=== PATIENT | female | born 1945 | race Hispanic/Latino ===

== ENCOUNTER 2021-08-29 12:54 | Inpatient (IN) | payer MEDICARE ==
--- NOTE | 2021-08-29 13:05 | Emergency Department Report ---
ED Lower Extremity HPI - General Stated Complaint: WEAKNESS/LEG DRAINAGE Time Seen by Provider: 08/29/21 13:00 - History of Present Illness Initial Comments: Patient presents by EMS secondary to leg infections. She states that she is at home. Her alcoholic daughter is living with her. Her autistic grandson is living with her. She states that she had become sick and was unable to care for herself. She has sat on the couch in her cot with dressings around her legs. They had wounds and sores on them. Now they have "worms in them." Patient believes it has been 3 weeks at least since the dressings have been changed. She states that she just does not have any help at home because she is the adult of the house. She states that her legs are hurting. It is a constant and aching pain. It is bilateral. There is no recent history of trauma. She has no fevers or chills. She has no chest pain or shortness of breath. - Related Data Previous Rx's Medication Instructions Recorded Last Taken Type Clindamycin [Clindamycin CAP] 600 mg PO TID 5 Days capsule 07/12/16 Unknown Rx Clindamycin [Clindamycin CAP] 450 mg PO Q8HR #21 capsule 12/11/19 Unknown Rx Allergies Allergy/AdvReac Type Severity Reaction Status Date / Time amoxicillin trihydrate Allergy Unknown Verified 01/30/16 16:44 [From Amoxil] codeine Allergy Unknown Verified 01/30/16 16:44 Sulfa (Sulfonamide Allergy Unknown Verified 01/30/16 16:44 Antibiotics) tetracycline Allergy Unknown Verified 01/30/16 16:44 ED Review of Systems ROS: Stated complaint: WEAKNESS/LEG DRAINAGE Other details as noted in HPI Comment: All other systems reviewed and negative Constitutional: denies: fever Eyes: denies: eye pain ENT: denies: throat pain Respiratory: denies: cough Cardiovascular: denies: chest pain Endocrine: denies: unexplained weight loss Gastrointestinal: denies: abdominal pain Genitourinary: dysuria (Patient admits this later in the ED course) Musculoskeletal: denies: back pain Skin: rash (Legs) Neurological: denies: headache Hematological/Lymphatic: denies: easy bruising ED Past Medical Hx - Past Medical History Hx Hypertension: No Hx Heart Attack/AMI: No Hx Congestive Heart Failure: No Hx Diabetes: No Hx Deep Vein Thrombosis: No Hx Pulmonary Embolism: No Hx GERD: Yes Hx Renal Disease: No Hx Arthritis: No Hx Kidney Stones: No Hx Asthma: No Hx COPD: No Hx Tuberculosis: No Hx HIV: No Additional medical history: prolapse bladder. poor circulation - Surgical History Hx Coronary Stent: No Hx Open Heart Surgery: No Hx Pacemaker: No Hx Internal Defibrillator: No Hx Cholecystectomy: No Hx Appendectomy: No Hx Breast Surgery: No Additional Surgical History: hysterectomy - Family History Family history: hypertension - Social History Smoking Status: Former Smoker Substance Use Type: None - Medications Home Medications: Home Medications Medication Instructions Recorded Confirmed Last Taken Type Clindamycin [Clindamycin CAP] 600 mg PO TID 5 Days capsule 07/12/16 Unknown Rx Clindamycin [Clindamycin CAP] 450 mg PO Q8HR #21 capsule 12/11/19 Unknown Rx ED Physical Exam - General Limitations: No Limitations, Other (Unkempt and disheveled. Pulse ox was noted) General appearance: alert, in no apparent distress - Head Head exam: Present: atraumatic, normocephalic, normal inspection - Eye Eye exam: Present: normal appearance, EOMI. Absent: scleral icterus - ENT ENT exam: Present: mucous membranes dry, normal external ear exam - Neck Neck exam: Present: normal inspection. Absent: meningismus - Respiratory Respiratory exam: Present: normal lung sounds bilaterally. Absent: respiratory distress - Cardiovascular Cardiovascular Exam: Present: regular rate, normal rhythm - GI/Abdominal GI/Abdominal exam: Present: soft. Absent: tenderness - Extremities Exam Extremities exam: Present: other (Significant wounds are noted to both legs with necrosis, maggots, and purulent drainage. This includes the feet.) - Back Exam Back exam: Absent: CVA tenderness (R), CVA tenderness (L) - Neurological Exam Neurological exam: Present: alert, oriented X3, CN II-XII intact, other (Numbness to both legs subjectively) - Psychiatric Psychiatric exam: Present: normal affect, normal mood - Skin Skin exam: Present: warm, dry ED Course - Reevaluation(s) Reevaluation #1: 08/29/21 13:03 EMS was met. Patient will be placed in a room. Legs will be examined. Case management will be ordered. Reevaluation #2: 08/29/21 14:49 Legs have been noted. Case was discussed with Dr. Blancas who will admit. Wound care is at the bedside. ED Lower Extremity MDM - Lab Data Result diagrams: 08/29/21 13:25 08/29/21 13:25 - Medical Decision Making Patient is here for leg wound evaluation. She has significant necrosis of both legs with significant wounds and infections with maggot infestation. She later reports a urinary tract infection and a UA will be ordered. Patient can be treated symptomatically. Case management and wound care have been involved. She will likely need placement. Adult Protective Services will need to be notified. Critical Care Time: No Critical care attestation.: If time is entered above; I have spent that time in minutes in the direct care of this critically ill patient, excluding procedure time. ED Disposition Clinical Impression: Cellulitis of right leg, Left leg cellulitis Disposition: ADMITTED INPATIENT Is pt being admited?: Yes Condition: Stable
[2021-08-29 13:40] LABS: Hematocrit 39.2 % (30.3-42.9); Hemoglobin 12.9 gm/dl (10.1-14.3); Mean Corpuscular HGB Conc 33 % (30-34); Mean Corpuscular Volume 86 fl (79-97); Platelet Count 271 K/mm3 (140-440); Red Blood Count 4.56 M/mm3 (3.65-5.03); Red Cell Distribution Width 15.3 % (13.2-15.2)
[2021-08-29 13:54] LABS: Blood Urea Nitrogen 9 mg/dL (7-17); Calcium 8.2 mg/dL (8.4-10.2); Hemolysis Index 7
[2021-08-29 14:06] LABS: BUN/Creatinine Ratio 13
[2021-08-29] MEDS ORDERED: SODIUM CHLORIDE 0.9% 500 ML 500 ML ONE (14:45)
[2021-08-29] MEDS ORDERED: ALBUTEROL 2.5 MG/3 ML NEBU IH PRN (14:56)
[2021-08-29] MEDS ORDERED: oxyCODONE /ACETAMINOPHEN 5-325MG TAB PO PRN (14:56)
[2021-08-29] MEDS ORDERED: HYDROmorphone 1 MG/1 ML INJ IV PRN (14:56)
[2021-08-29] MEDS ORDERED: ACETAMINOPHEN 325 MG TAB PO PRN (14:56)
[2021-08-29] MEDS ORDERED: ONDANSETRON 4 MG/2 ML INJ IV PRN (14:56)
--- NOTE | 2021-08-29 14:56 | History and Physical Report ---
History of Present Illness Chief complaint: I have not seen a doctor History of present illness: 76 YO Female with Vascular Dementia, Cerebral Atherosclerosis, Deblity, HTN, BLE DTI present on admission presents to ED for evaluation. Patient has diminished cognition and provides minimal history. Patient history taken from EMS staff, ED staff. Patient reports " I have not seen a doctor ". Patient reports feeling sick and unable to take care of herself. EMS was notified and upon arrival the patient was found to be in distress and subsequently transported to [facility] for further care and evaluation of the aforementioned symptoms. The patient was seen and evaluated in the emergency department. All lab and imaging studies reviewed. Patient was found to have bilateral lower extremity cellulitis with foul-smelling discharge from bilateral lower extremities. Patient is bedbound, nonambulatory and requires 4/6 assistance with activities of daily living. Patient has a palliative performance score of 40%. Patient admitted to medical floor due to increased risk of worsening symptoms. Patient initiated on IV antibiotic therapy in the emergency department. Wound care team consulted. No reports of fever, chills, chest pain, palpitation, productive cough, skin rash, recent ill contact, or known exposure to COVID-19. No prior admission for review. No medication listed at time of admission for reconciliation. Advanced care planning conducted in ED. Case management consulted for retirement facility placement. Past History Past Medical History: hypertension, other (See HPI) Past Surgical History: No surgical history, Other (Reviewed) Social history: , lives with family. denies: smoking, alcohol abuse, prescription drug abuse Family history: diabetes, hypertension Medications and Allergies Allergies Allergy/AdvReac Type Severity Reaction Status Date / Time amoxicillin trihydrate Allergy Unknown Verified 01/30/16 16:44 [From Amoxil] codeine Allergy Unknown Verified 01/30/16 16:44 Sulfa (Sulfonamide Allergy Unknown Verified 01/30/16 16:44 Antibiotics) tetracycline Allergy Unknown Verified 01/30/16 16:44 Home Medications Medication Instructions Recorded Confirmed Last Taken Type Clindamycin [Clindamycin CAP] 600 mg PO TID 5 Days capsule 07/12/16 Unknown Rx Clindamycin [Clindamycin CAP] 450 mg PO Q8HR #21 capsule 12/11/19 Unknown Rx Review of Systems ROS unobtainable: due to mental status Exam - Constitutional General appearance: Present: disheveled, malodorous - EENT Eyes: Present: PERRL ENT: clear oral mucosa, hearing decreased - Neck Neck: Present: supple, normal ROM - Respiratory Respiratory effort: normal Respiratory: bilateral: CTA - Cardiovascular Heart Sounds: Present: S1 & S2. Absent: rub, click - Extremities Extremities: pulses symmetrical, No edema Extremity abnormal: edema, ulceration, erythema Peripheral Pulses: within normal limits - Abdominal General gastrointestinal: Present: soft, non-tender, non-distended, normal bowel sounds Female genitourinary: Present: normal - Integumentary Integumentary: Present: clear, warm, dry - Musculoskeletal Musculoskeletal: gait normal, strength equal bilaterally - Psychiatric Psychiatric: appropriate mood/affect, intact judgment & insight - Neurologic Neurologic: CNII-XII intact, moves all extremities Results - Labs CBC & Chem 7: 08/29/21 13:25 08/29/21 13:25 Labs: Abnormal lab results 08/29/21 08/29/21 Range/Units 13:25 13:25 RDW 15.3 H (13.2-15.2) % Carbon Dioxide 21 L (22-30) mmol/L Calcium 8.2 L (8.4-10.2) mg/dL Assessment and Plan - Patient Problems (1) Bilateral lower leg cellulitis Current Visit: No Status: Acute Plan to address problem: IV antibiotic therapy, wound care consulted, supportive care, pain control. (2) Metabolic encephalopathy Current Visit: Yes Status: Acute Plan to address problem: Seizure precautions, fall precautions, neuro check, IV fluid resuscitation therapy, BMP (3) Vascular dementia Current Visit: Yes Status: Acute Qualifiers: Dementia behavioral disturbance: without behavioral disturbance Qualified Code(s): F01.50 - Vascular dementia without behavioral disturbance Plan to address problem: Verbal prompting, verbal redirection, supportive care, benzodiazepine therapy as clinically indicated (4) Cerebral atherosclerosis Current Visit: Yes Status: Acute Plan to address problem: Risk factor reduction, supportive care (5) Debility Current Visit: Yes Status: Acute Plan to address problem: Physical therapy consulted (6) DVT prophylaxis Current Visit: Yes Status: Acute Plan to address problem: SCD to bilateral lower extremities while in bed, prophylactic anticoagulation (7) Advance care planning Current Visit: Yes Status: Acute Plan to address problem: Disease education conducted, care plan discussed, diagnosis discussed, prognosis discussed, patient is full code, +30 minutes.
[2021-08-29] MEDS ORDERED: fentaNYL 100 MCG/2 ML INJ IV ONE (14:57)
[2021-08-29] MEDS ORDERED: SODIUM CHLORIDE 0.9% 1000 ML 1,000 ML IV SCH (15:00)
[2021-08-29] MEDS ORDERED: VANCOMYCIN/NS 1 GM/250 ML 1 GM/250 ML BAG IV ONE (15:01)
[2021-08-29] MEDS ORDERED: VANCOMYCIN 1,250 MG in SODIUM CHLORIDE 0.9% 250ML 250 ML IV ONE (16:00)
[2021-08-29] MEDS ORDERED: VANCOMYCIN PHARMACY TO DOSE IV SCH (16:00)
[2021-08-29 22:06] LABS: Eosinophils % (Auto) 0.5 % (0.0-4.3); Monocytes # (Auto) 0.6 K/mm3 (0.0-0.8); Monocytes % (Auto) 7.6 % (0.0-7.3)
[2021-08-29 22:10] LABS: Platelet Estimate Consistent w Auto; RBC Morphology Normal; Total Cells Counted 100
[2021-08-30] MEDS: VANCOMYCIN/NS 1 GM/250 ML 1 GM/250 ML BAG IV SCH ×2 (05:22→16:46)
[2021-08-30 06:45] LABS: Basophils % (Auto) 1.1 % (0.0-1.8); Eosinophils # (Auto) 0.1 K/mm3 (0.0-0.4); Eosinophils % (Auto) 2.3 % (0.0-4.3); Hematocrit 38.1 % (30.3-42.9); Hemoglobin 12.6 gm/dl (10.1-14.3); Lymphocytes # (Auto) 1.1 K/mm3 (1.2-5.4); Lymphocytes % (Auto) 24.8 % (13.4-35.0); Mean Corpuscular HGB Conc 33 % (30-34); Mean Corpuscular Volume 87 fl (79-97); Monocytes # (Auto) 0.5 K/mm3 (0.0-0.8); Monocytes % (Auto) 11.3 % (0.0-7.3); Red Blood Count 4.35 M/mm3 (3.65-5.03); Red Cell Distribution Width 15.1 % (13.2-15.2)
[2021-08-30 06:52] LABS: BUN/Creatinine Ratio 10; Blood Urea Nitrogen 8 mg/dL (7-17); Calcium 8.2 mg/dL (8.4-10.2); Hemolysis Index 3
[2021-08-30] MEDS ORDERED: ENOXAPARIN 30 MG/0.3 ML INJ SUB-Q SCH (10:00)
--- NOTE | 2021-08-30 13:18 | Progress Note ---
Assessment and Plan Assessment and plan: #Cellulitis -Vancomycin will discontinue and start clindamycin -Likely secondary to untreated chronic venous stasis - #Chronic venous stasis with ulceration -General surgery consulted per wound care recs -We will need outpatient wound care follow-up #Hypertension -Patient history of hypertension blood pressure controlled without meds -We will continue to monitor #Debility -PT/OT consulted -Recommended for SNF, patient declined -We will discharge with home health and DME for walker/cane Disposition Plan: Home with home health Total Time Spent with Patient (Minutes): 20 minutes History Interval history: Acute events overnight. Patient denies pain and discomfort. She said her legs were wrapped by wound care yesterday and she only has itching in the area. Hospitalist Physical - Physical exam Narrative exam: GENERAL: Well-developed well-nourished. Lying in the bed in no acute distress. CHEST/LUNGS: CTAB on 2 L nasal cannula HEART/CARDIOVASCULAR: RRR. No murmur, rubs or gallops appreciated. ABDOMEN: +BS. NT/ND. NEURO: No focal motor deficit. Follows all commands. EXTREMITIES: BLE chronic venous ulcers covered with dressings C/D/I PSYCH: Cooperative. - Constitutional Vitals: Temp Pulse Resp BP Pulse Ox 97.7 F 97 H 92 H 103/63 99 08/30/21 04:34 08/30/21 04:34 08/30/21 11:00 08/30/21 04:34 08/30/21 05:31 General appearance: Present: disheveled, malodorous Results - Labs CBC & Chem 7: 08/31/21 05:56 08/31/21 05:56 Labs: Laboratory Last Values WBC 4.4 K/mm3 (4.5-11.0) L 08/30/21 05:56 RBC 4.35 M/mm3 (3.65-5.03) 08/30/21 05:56 Hgb 12.6 gm/dl (10.1-14.3) 08/30/21 05:56 Hct 38.1 % (30.3-42.9) 08/30/21 05:56 MCV 87 fl (79-97) 08/30/21 05:56 MCH 29 pg (28-32) 08/30/21 05:56 MCHC 33 % (30-34) 08/30/21 05:56 RDW 15.1 % (13.2-15.2) 08/30/21 05:56 Plt Count 271 K/mm3 (140-440) 08/29/21 13:25 Lymph % (Auto) 24.8 % (13.4-35.0) 08/30/21 05:56 [place] % (Auto) 11.3 % (0.0-7.3) H 08/30/21 05:56 Eos % (Auto) 2.3 % (0.0-4.3) 08/30/21 05:56 Baso % (Auto) 1.1 % (0.0-1.8) 08/30/21 05:56 Lymph # (Auto) 1.1 K/mm3 (1.2-5.4) L 08/30/21 05:56 [place] # (Auto) 0.5 K/mm3 (0.0-0.8) 08/30/21 05:56 Eos # (Auto) 0.1 K/mm3 (0.0-0.4) 08/30/21 05:56 Baso # (Auto) 0.0 K/mm3 (0.0-0.1) 08/30/21 05:56 Add Manual Diff Complete 08/29/21 13:25 Total Counted 100 08/29/21 13:25 Seg Neutrophils % 60.5 % (40.0-70.0) 08/30/21 05:56 Seg Neuts % (Manual) 82.0 % (40.0-70.0) H 08/29/21 13:25 Lymphocytes % (Manual) 9.0 % (13.4-35.0) L 08/29/21 13:25 Monocytes % (Manual) 7.0 % (0.0-7.3) 08/29/21 13:25 Eosinophils % (Manual) 1.0 % (0.0-4.3) 08/29/21 13:25 Basophils % (Manual) 1.0 % (0.0-1.8) 08/29/21 13:25 Nucleated RBC % Not Reportable 08/29/21 13:25 Seg Neutrophils # 2.7 K/mm3 (1.8-7.7) 08/30/21 05:56 Seg Neutrophils # Man 6.6 K/mm3 (1.8-7.7) 08/29/21 13:25 Band Neutrophils # 0.0 K/mm3 08/29/21 13:25 Lymphocytes # (Manual) 0.7 K/mm3 (1.2-5.4) L 08/29/21 13:25 Abs React Lymphs (Man) 0.0 K/mm3 08/29/21 13:25 Monocytes # (Manual) 0.6 K/mm3 (0.0-0.8) 08/29/21 13:25 Eosinophils # (Manual) 0.1 K/mm3 (0.0-0.4) 08/29/21 13:25 Basophils # (Manual) 0.1 K/mm3 (0.0-0.1) 08/29/21 13:25 Metamyelocytes # 0.0 K/mm3 08/29/21 13:25 Myelocytes # 0.0 K/mm3 08/29/21 13:25 Promyelocytes # 0.0 K/mm3 08/29/21 13:25 Blast Cells # 0.0 K/mm3 08/29/21 13:25 WBC Morphology Not Reportable 08/29/21 13:25 Hypersegmented Neuts Not Reportable 08/29/21 13:25 Hyposegmented Neuts Not Reportable 08/29/21 13:25 Hypogranular Neuts Not Reportable 08/29/21 13:25 Smudge Cells Not Reportable 08/29/21 13:25 Toxic Granulation Not Reportable 08/29/21 13:25 Toxic Vacuolation Not Reportable 08/29/21 13:25 Dohle Bodies Not Reportable 08/29/21 13:25 Pelger-Huet Anomaly Not Reportable 08/29/21 13:25 Liliya Rods Not Reportable 08/29/21 13:25 Platelet Estimate Consistent w auto 08/29/21 13:25 Clumped Platelets Not Reportable 08/29/21 13:25 Plt Clumps, EDTA Not Reportable 08/29/21 13:25 Large Platelets Not Reportable 08/29/21 13:25 Giant Platelets Not Reportable 08/29/21 13:25 Platelet Satelliting Not Reportable 08/29/21 13:25 Plt Morphology Comment Not Reportable 08/29/21 13:25 RBC Morphology Normal 08/29/21 13:25 Dimorphic RBCs Not Reportable 08/29/21 13:25 Polychromasia Not Reportable 08/29/21 13:25 Hypochromasia Not Reportable 08/29/21 13:25 Poikilocytosis Not Reportable 08/29/21 13:25 Anisocytosis Not Reportable 08/29/21 13:25 Microcytosis Not Reportable 08/29/21 13:25 Macrocytosis Not Reportable 08/29/21 13:25 Spherocytes Not Reportable 08/29/21 13:25 Pappenheimer Bodies Not Reportable 08/29/21 13:25 Sickle Cells Not Reportable 08/29/21 13:25 Target Cells Not Reportable 08/29/21 13:25 Tear Drop Cells Not Reportable 08/29/21 13:25 Ovalocytes Not Reportable 08/29/21 13:25 Helmet Cells Not Reportable 08/29/21 13:25 [place] Bodies Not Reportable 08/29/21 13:25 [place] Rings Not Reportable 08/29/21 13:25 Saurabh Cells Not Reportable 08/29/21 13:25 Bite Cells Not Reportable 08/29/21 13:25 Crenated Cell Not Reportable 08/29/21 13:25 Elliptocytes Not Reportable 08/29/21 13:25 Acanthocytes (Spur) Not Reportable 08/29/21 13:25 Rouleaux Not Reportable 08/29/21 13:25 Hemoglobin C Crystals Not Reportable 08/29/21 13:25 Schistocytes Not Reportable 08/29/21 13:25 Malaria parasites Not Reportable 08/29/21 13:25 Lizandro Bodies Not Reportable 08/29/21 13:25 Hem Pathologist Commnt No 08/29/21 13:25 Sodium 141 mmol/L (137-145) 08/30/21 05:56 Potassium 3.7 mmol/L (3.6-5.0) 08/30/21 05:56 Chloride 106.6 mmol/L (98-107) 08/30/21 05:56 Carbon Dioxide 24 mmol/L (22-30) 08/30/21 05:56 Anion Gap 14 mmol/L 08/30/21 05:56 BUN 8 mg/dL (7-17) 08/30/21 05:56 Creatinine 0.8 mg/dL (0.6-1.2) 08/30/21 05:56 Estimated GFR > 60 ml/min 08/30/21 05:56 BUN/Creatinine Ratio 10 % 08/30/21 05:56 Glucose 90 mg/dL (65-100) 08/30/21 05:56 Calcium 8.2 mg/dL (8.4-10.2) L 08/30/21 05:56 Long/IV: Voiding Method Bedpan Active Medications - Current Medications Current Medications: Generic Name Dose Route Start Last Admin Trade Name Freq PRN Reason Stop Dose Admin Acetaminophen 650 mg 08/29/21 14:56 Acetaminophen 325 Mg Tab PO Q4H PRN Pain MILD(1-3)/Fever >100.5/CHAPMAN Albuterol 2.5 mg 08/29/21 14:56 Albuterol 2.5 Mg/3 Ml Nebu IH Q4HRT PRN Shortness Of Breath Enoxaparin Sodium 40 mg 08/31/21 10:00 Enoxaparin 40 Mg/0.4 Ml Inj SUB-Q QDAY@1000 SHON Protocol Hydromorphone HCl 0.5 mg 08/29/21 14:56 Hydromorphone 1 Mg/1 Ml Inj IV Q23H PRN Pain , Severe (7-10) Sodium Chloride 1,000 mls @ 42 mls/hr 08/29/21 15:00 Nacl 0.9% 1000 Ml IV DIRECT SHON Vancomycin HCl 1 gm in 250 mls @ 166.667 mls/hr 08/30/21 04:00 08/30/21 05:22 Vancomycin/Ns 1 Gm/250 Ml IV 166.667 mls/hr Q12H SHON Administration Ondansetron HCl 4 mg 08/29/21 14:56 Ondansetron 4 Mg/2 Ml Inj IV Q8H PRN Nausea And Vomiting Oxycodone/Acetaminophen 1 tab 08/29/21 14:56 Oxycodone /Acetaminophen 5-325mg Tab PO Q16H PRN Pain, Moderate (4-6) Sodium Chloride 10 ml 08/29/21 22:00 08/30/21 09:45 Sodium Chloride 0.9% 10 Ml Flush Syringe IV 10 ml BID SHON Administration Sodium Chloride 10 ml 08/29/21 14:56 Sodium Chloride 0.9% 10 Ml Flush Syringe IV PRN PRN LINE FLUSH Sodium Hypochlorite 1 applic 08/30/21 13:00 Sodium Hypochlorite, Dakin's 1/2 Strength (0.25%) 473 Ml Topical Soln TP BID SHON
[2021-08-30] MEDS: SODIUM HYPOCHLORITE, DAKIN'S 1/2 STRENGTH (0.25%) 473 ML TOPICAL SOLN TP SCH ×2 (16:46→21:50)
[2021-08-30 17:39] LABS: Platelet Count 261 K/mm3 (140-440)
[2021-08-31] MEDS: VANCOMYCIN/NS 1 GM/250 ML 1 GM/250 ML BAG IV SCH (05:07)
[2021-08-31 06:40] LABS: Hematocrit 36.8 % (30.3-42.9); Hemoglobin 12.1 gm/dl (10.1-14.3); Mean Corpuscular HGB Conc 33 % (30-34); Mean Corpuscular Volume 87 fl (79-97); Platelet Count 285 K/mm3 (140-440); Red Blood Count 4.25 M/mm3 (3.65-5.03); Red Cell Distribution Width 15.1 % (13.2-15.2)
[2021-08-31 07:05] LABS: Blood Urea Nitrogen 9 mg/dL (7-17); Hemolysis Index 1
[2021-08-31 07:09] LABS: BUN/Creatinine Ratio 15
[2021-08-31] MEDS: CLINDAMYCIN 600 MG/50 mL 600 MG/50 ML BAG IV SCH ×3 (10:36→21:48)
[2021-08-31] MEDS: ENOXAPARIN 40 MG/0.4 ML INJ SUB-Q SCH (10:37)
[2021-08-31] MEDS: SODIUM HYPOCHLORITE, DAKIN'S 1/2 STRENGTH (0.25%) 473 ML TOPICAL SOLN TP SCH (10:37)
--- NOTE | 2021-08-31 11:12 | Consultation ---
History of Present Illness Consult date: 08/31/21 Chief complaint: Bilateral leg ulcers - History of present illness History of present illness: 76 yo female, non-diabetic, non-smoker with a long h/o bilateral leg ulcers. The ulcers had maggots in them on presentation. Pt has never been to a wound clinic. She cannot drive. Past History Past Medical History: hypertension, other (See HPI) Past Surgical History: No surgical history, Other (Reviewed) Social history: , lives with family. denies: smoking, alcohol abuse, prescription drug abuse Family history: diabetes, hypertension Medications and Allergies Allergies Allergy/AdvReac Type Severity Reaction Status Date / Time amoxicillin trihydrate Allergy Unknown Verified 01/30/16 16:44 [From Amoxil] codeine Allergy Unknown Verified 01/30/16 16:44 Sulfa (Sulfonamide Allergy Unknown Verified 01/30/16 16:44 Antibiotics) tetracycline Allergy Unknown Verified 01/30/16 16:44 Home Medications Medication Instructions Recorded Confirmed Last Taken Type No Known Home Medications [No 08/30/21 08/30/21 Unknown History Reported Home Medications] Active Meds: Active Medications Acetaminophen (Acetaminophen 325 Mg Tab) 650 mg PO Q4H PRN PRN Reason: Pain MILD(1-3)/Fever >100.5/CHAPMAN Albuterol (Albuterol 2.5 Mg/3 Ml Nebu) 2.5 mg IH Q4HRT PRN PRN Reason: Shortness Of Breath Enoxaparin Sodium (Enoxaparin 40 Mg/0.4 Ml Inj) 40 mg SUB-Q QDAY@1000 SHON; Protocol Last Admin: 08/31/21 10:37 Dose: 40 mg Documented by: Hydromorphone HCl (Hydromorphone 1 Mg/1 Ml Inj) 0.5 mg IV Q23H PRN PRN Reason: Pain , Severe (7-10) Sodium Chloride (Nacl 0.9% 1000 Ml) 1,000 mls @ 42 mls/hr IV DIRECT SHON Clindamycin HCl (Cleocin 600 Mg/50 Ml) 600 mg in 50 mls @ 100 mls/hr IV Q8HR SHON; Protocol Last Admin: 08/31/21 10:36 Dose: 100 mls/hr Documented by: Ondansetron HCl (Ondansetron 4 Mg/2 Ml Inj) 4 mg IV Q8H PRN PRN Reason: Nausea And Vomiting Oxycodone/Acetaminophen (Oxycodone /Acetaminophen 5-325mg Tab) 1 tab PO Q16H PRN PRN Reason: Pain, Moderate (4-6) Sodium Chloride (Sodium Chloride 0.9% 10 Ml Flush Syringe) 10 ml IV BID [facility] Last Admin: 08/31/21 10:37 Dose: 10 ml Documented by: Sodium Chloride (Sodium Chloride 0.9% 10 Ml Flush Syringe) 10 ml IV PRN PRN PRN Reason: LINE FLUSH Sodium Hypochlorite (Sodium Hypochlorite, Dakin's 1/2 Strength (0.25%) 473 Ml Topical Soln) 1 applic TP BID [facility] Last Admin: 08/31/21 10:37 Dose: 1 bottle Documented by: Review of Systems All systems: negative (none) Exam Vital Signs Resp Pulse Ox 16 97 08/29/21 13:39 08/29/21 13:39 - General physical appearance Positive: well developed, well nourished, no distress - Eyes Positive: PERRL, normal occular movement - ENT Positive: normal pinna, normal nares, normal mucosa, no hearing loss, no congestion - Neck Positive: no masses, no bruits, trachea midline, no venous distension - Respiratory Positive: normal expansion, normal respiratory effort, clear to auscultation - Cardiovascular Rhythm: regular Heart Sounds: Present: S1 & S2. Absent: rub, click - Extremities Extremities: no ischemia, pulses symmetrical, No edema - Breasts Breasts: normal, no mass, no skin changes - Abdomen Abdomen: Present: soft, bowel sounds normal. Absent: tender, distended Hernia: none - Genitourinary Male Genitourinary: normal Female Genitourinary: normal - Integumentary no rash, no growths, no abnormal pigmentation, other (There are chronic venous stasis ulcerations of the bilateral lateral legs. These are very clean without necrotic tissue.) - Neurologic Neurologic: alert and oriented to time, place and person, motor strength and sensation are grossly intact - Musculoskeletal normal gait, normal posture - Psychiatric Psychiatric: appropriate mood/affect, intact judgment & insight Results - Labs 08/31/21 05:56 08/31/21 05:56 Abnormal lab results 08/31/21 Range/Units 05:56 Potassium 3.4 L (3.6-5.0) mmol/L Calcium 8.0 L (8.4-10.2) mg/dL Diabetes panel 08/31/21 Range/Units 05:56 Sodium 141 (137-145) mmol/L Potassium 3.4 L (3.6-5.0) mmol/L Chloride 107.0 (98-107) mmol/L Carbon Dioxide 25 (22-30) mmol/L BUN 9 (7-17) mg/dL Creatinine 0.6 (0.6-1.2) mg/dL Glucose 100 (65-100) mg/dL Calcium 8.0 L (8.4-10.2) mg/dL Calcium panel 08/31/21 Range/Units 05:56 Calcium 8.0 L (8.4-10.2) mg/dL Pituitary panel 08/31/21 Range/Units 05:56 Sodium 141 (137-145) mmol/L Potassium 3.4 L (3.6-5.0) mmol/L Chloride 107.0 (98-107) mmol/L Carbon Dioxide 25 (22-30) mmol/L BUN 9 (7-17) mg/dL Creatinine 0.6 (0.6-1.2) mg/dL Glucose 100 (65-100) mg/dL Calcium 8.0 L (8.4-10.2) mg/dL Adrenal panel 08/31/21 Range/Units 05:56 Sodium 141 (137-145) mmol/L Potassium 3.4 L (3.6-5.0) mmol/L Chloride 107.0 (98-107) mmol/L Carbon Dioxide 25 (22-30) mmol/L BUN 9 (7-17) mg/dL Creatinine 0.6 (0.6-1.2) mg/dL Glucose 100 (65-100) mg/dL Calcium 8.0 L (8.4-10.2) mg/dL Assessment and Plan - Patient Problems (1) Idiopathic chronic venous hypertension of both legs with ulcer Current Visit: Yes Status: Acute Plan to address problem: 1) Keep both legs elevated as much as possible. 2) Dakin's solution wet to drys to both legs bid 3) F/u in Wound Clinic after discharge.
--- NOTE | 2021-08-31 11:53 | Progress Note ---
Assessment and Plan Assessment and plan: #Cellulitis -Vancomycin discontinued -Started clindamycin -Likely secondary to untreated chronic venous stasis - #Chronic venous stasis with ulceration -General surgery consulted, recommend wound care -Wound care following -We will need outpatient wound care follow-up #Hypertension -Patient history of hypertension blood pressure controlled without meds -We will continue to monitor #Uterine prolapse -Seen on exam, chronic -will consider Division Operations Specialist consult prior to discharge #Vulval vaginal candidiasis -Dose of Diflucan #Debility -PT/OT consulted -Recommended for SNF, patient declined -We will discharge with home health and DME for walker/cane Disposition Plan: Home with home health Total Time Spent with Patient (Minutes): 20 minutes History Interval history: Acute events overnight. Patient comfortable denies pain. Does report itching of the legs and also the vaginal area. Hospitalist Physical - Physical exam Narrative exam: GENERAL: Well-developed well-nourished. Lying in the bed in no acute distress. CHEST/LUNGS: CTAB on 2 L nasal cannula HEART/CARDIOVASCULAR: RRR. No murmur, rubs or gallops appreciated. ABDOMEN: +BS. NT/ND. : Visible uterine prolapse. Thick yellowish discharge. NEURO: No focal motor deficit. Follows all commands. EXTREMITIES: BLE chronic venous ulcers covered with dressings C/D/I PSYCH: Cooperative. - Constitutional Vitals: Temp Pulse Resp BP Pulse Ox 98.2 F 62 18 100/49 90 08/31/21 06:36 08/31/21 06:36 08/31/21 06:36 08/31/21 06:36 08/31/21 06:36 General appearance: Present: disheveled, malodorous Results - Labs CBC & Chem 7: 08/31/21 05:56 08/31/21 05:56 Labs: Laboratory Last Values WBC 4.7 K/mm3 (4.5-11.0) 08/31/21 05:56 RBC 4.25 M/mm3 (3.65-5.03) 08/31/21 05:56 Hgb 12.1 gm/dl (10.1-14.3) 08/31/21 05:56 Hct 36.8 % (30.3-42.9) 08/31/21 05:56 MCV 87 fl (79-97) 08/31/21 05:56 MCH 29 pg (28-32) 08/31/21 05:56 MCHC 33 % (30-34) 08/31/21 05:56 RDW 15.1 % (13.2-15.2) 08/31/21 05:56 Plt Count 285 K/mm3 (140-440) 08/31/21 05:56 Lymph % (Auto) 24.8 % (13.4-35.0) 08/30/21 05:56 [place] % (Auto) 11.3 % (0.0-7.3) H 08/30/21 05:56 Eos % (Auto) 2.3 % (0.0-4.3) 08/30/21 05:56 Baso % (Auto) 1.1 % (0.0-1.8) 08/30/21 05:56 Lymph # (Auto) 1.1 K/mm3 (1.2-5.4) L 08/30/21 05:56 [place] # (Auto) 0.5 K/mm3 (0.0-0.8) 08/30/21 05:56 Eos # (Auto) 0.1 K/mm3 (0.0-0.4) 08/30/21 05:56 Baso # (Auto) 0.0 K/mm3 (0.0-0.1) 08/30/21 05:56 Add Manual Diff Complete 08/29/21 13:25 Total Counted 100 08/29/21 13:25 Seg Neutrophils % 60.5 % (40.0-70.0) 08/30/21 05:56 Seg Neuts % (Manual) 82.0 % (40.0-70.0) H 08/29/21 13:25 Lymphocytes % (Manual) 9.0 % (13.4-35.0) L 08/29/21 13:25 Monocytes % (Manual) 7.0 % (0.0-7.3) 08/29/21 13:25 Eosinophils % (Manual) 1.0 % (0.0-4.3) 08/29/21 13:25 Basophils % (Manual) 1.0 % (0.0-1.8) 08/29/21 13:25 Nucleated RBC % Not Reportable 08/29/21 13:25 Seg Neutrophils # 2.7 K/mm3 (1.8-7.7) 08/30/21 05:56 Seg Neutrophils # Man 6.6 K/mm3 (1.8-7.7) 08/29/21 13:25 Band Neutrophils # 0.0 K/mm3 08/29/21 13:25 Lymphocytes # (Manual) 0.7 K/mm3 (1.2-5.4) L 08/29/21 13:25 Abs React Lymphs (Man) 0.0 K/mm3 08/29/21 13:25 Monocytes # (Manual) 0.6 K/mm3 (0.0-0.8) 08/29/21 13:25 Eosinophils # (Manual) 0.1 K/mm3 (0.0-0.4) 08/29/21 13:25 Basophils # (Manual) 0.1 K/mm3 (0.0-0.1) 08/29/21 13:25 Metamyelocytes # 0.0 K/mm3 08/29/21 13:25 Myelocytes # 0.0 K/mm3 08/29/21 13:25 Promyelocytes # 0.0 K/mm3 08/29/21 13:25 Blast Cells # 0.0 K/mm3 08/29/21 13:25 WBC Morphology Not Reportable 08/29/21 13:25 Hypersegmented Neuts Not Reportable 08/29/21 13:25 Hyposegmented Neuts Not Reportable 08/29/21 13:25 Hypogranular Neuts Not Reportable 08/29/21 13:25 Smudge Cells Not Reportable 08/29/21 13:25 Toxic Granulation Not Reportable 08/29/21 13:25 Toxic Vacuolation Not Reportable 08/29/21 13:25 Dohle Bodies Not Reportable 08/29/21 13:25 Pelger-Huet Anomaly Not Reportable 08/29/21 13:25 Liliya Rods Not Reportable 08/29/21 13:25 Platelet Estimate Consistent w auto 08/29/21 13:25 Clumped Platelets Not Reportable 08/29/21 13:25 Plt Clumps, EDTA Not Reportable 08/29/21 13:25 Large Platelets Not Reportable 08/29/21 13:25 Giant Platelets Not Reportable 08/29/21 13:25 Platelet Satelliting Not Reportable 08/29/21 13:25 Plt Morphology Comment Not Reportable 08/29/21 13:25 RBC Morphology Normal 08/29/21 13:25 Dimorphic RBCs Not Reportable 08/29/21 13:25 Polychromasia Not Reportable 08/29/21 13:25 Hypochromasia Not Reportable 08/29/21 13:25 Poikilocytosis Not Reportable 08/29/21 13:25 Anisocytosis Not Reportable 08/29/21 13:25 Microcytosis Not Reportable 08/29/21 13:25 Macrocytosis Not Reportable 08/29/21 13:25 Spherocytes Not Reportable 08/29/21 13:25 Pappenheimer Bodies Not Reportable 08/29/21 13:25 Sickle Cells Not Reportable 08/29/21 13:25 Target Cells Not Reportable 08/29/21 13:25 Tear Drop Cells Not Reportable 08/29/21 13:25 Ovalocytes Not Reportable 08/29/21 13:25 Helmet Cells Not Reportable 08/29/21 13:25 [place] Bodies Not Reportable 08/29/21 13:25 [place] Rings Not Reportable 08/29/21 13:25 [place] Cells Not Reportable 08/29/21 13:25 Bite Cells Not Reportable 08/29/21 13:25 Crenated Cell Not Reportable 08/29/21 13:25 Elliptocytes Not Reportable 08/29/21 13:25 Acanthocytes (Spur) Not Reportable 08/29/21 13:25 Rouleaux Not Reportable 08/29/21 13:25 Hemoglobin C Crystals Not Reportable 08/29/21 13:25 Schistocytes Not Reportable 08/29/21 13:25 Malaria parasites Not Reportable 08/29/21 13:25 Lizandro Bodies Not Reportable 08/29/21 13:25 Hem Pathologist Commnt No 08/29/21 13:25 Sodium 141 mmol/L (137-145) 08/31/21 05:56 Potassium 3.4 mmol/L (3.6-5.0) L 08/31/21 05:56 Chloride 107.0 mmol/L (98-107) 08/31/21 05:56 Carbon Dioxide 25 mmol/L (22-30) 08/31/21 05:56 Anion Gap 12 mmol/L 08/31/21 05:56 BUN 9 mg/dL (7-17) 08/31/21 05:56 Creatinine 0.6 mg/dL (0.6-1.2) 08/31/21 05:56 Estimated GFR > 60 ml/min 08/31/21 05:56 BUN/Creatinine Ratio 15 % 08/31/21 05:56 Glucose 100 mg/dL (65-100) 08/31/21 05:56 Calcium 8.0 mg/dL (8.4-10.2) L 08/31/21 05:56 Long/IV: Voiding Method Bedpan Active Medications - Current Medications Current Medications: Generic Name Dose Route Start Last Admin Trade Name Freq PRN Reason Stop Dose Admin Acetaminophen 650 mg 08/29/21 14:56 Acetaminophen 325 Mg Tab PO Q4H PRN Pain MILD(1-3)/Fever >100.5/CHAPMAN Albuterol 2.5 mg 08/29/21 14:56 Albuterol 2.5 Mg/3 Ml Nebu IH Q4HRT PRN Shortness Of Breath Enoxaparin Sodium 40 mg 08/31/21 10:00 08/31/21 10:37 Enoxaparin 40 Mg/0.4 Ml Inj SUB-Q 40 mg QDAY@1000 [facility] Administration Protocol Fluconazole 100 mg 08/31/21 12:00 Fluconazole 100 Mg Tab PO 08/31/21 12:01 ONCE ONE Protocol Hydromorphone HCl 0.5 mg 08/29/21 14:56 Hydromorphone 1 Mg/1 Ml Inj IV Q23H PRN Pain , Severe (7-10) Sodium Chloride 1,000 mls @ 42 mls/hr 08/29/21 15:00 Nacl 0.9% 1000 Ml IV DIRECT SHON Clindamycin HCl 600 mg in 50 mls @ 100 mls/hr 08/31/21 09:00 08/31/21 10:36 Cleocin 600 Mg/50 Ml IV 100 mls/hr Q8HR SHON Administration Protocol Ondansetron HCl 4 mg 08/29/21 14:56 Ondansetron 4 Mg/2 Ml Inj IV Q8H PRN Nausea And Vomiting Oxycodone/Acetaminophen 1 tab 08/29/21 14:56 Oxycodone /Acetaminophen 5-325mg Tab PO Q16H PRN Pain, Moderate (4-6) Sodium Chloride 10 ml 08/29/21 22:00 08/31/21 10:37 Sodium Chloride 0.9% 10 Ml Flush Syringe IV 10 ml BID SHON Administration Sodium Chloride 10 ml 08/29/21 14:56 Sodium Chloride 0.9% 10 Ml Flush Syringe IV PRN PRN LINE FLUSH Sodium Hypochlorite 1 applic 08/31/21 12:00 Sodium Hypochlorite, Dakin's Full Strength (0.5%) 473 Ml Topical Soln TP Q12HR PRN Wound Care
[2021-08-31] MEDS ORDERED: SODIUM HYPOCHLORITE, DAKIN'S FULL STRENGTH (0.5%) 473 ML TOPICAL SOLN TP PRN (12:00)
[2021-08-31] MEDS ORDERED: FLUCONAZOLE 100 MG TAB PO ONE (13:00)
[2021-08-31] MEDS ORDERED: POTASSIUM CHLORIDE ER 20 MEQ TAB PO ONE (23:00)
[2021-09-01] MEDS: CLINDAMYCIN 600 MG/50 mL 600 MG/50 ML BAG IV SCH ×3 (05:24→22:49)
[2021-09-01 07:51] LABS: Hematocrit 38.5 % (30.3-42.9); Hemoglobin 12.6 gm/dl (10.1-14.3); Mean Corpuscular HGB Conc 33 % (30-34); Mean Corpuscular Volume 86 fl (79-97); Platelet Count 292 K/mm3 (140-440)
[2021-09-01 08:10] LABS: Blood Urea Nitrogen 6 mg/dL (7-17); Calcium 8.4 mg/dL (8.4-10.2); Hemolysis Index 7
[2021-09-01 08:12] LABS: BUN/Creatinine Ratio 9
[2021-09-01] MEDS: ENOXAPARIN 40 MG/0.4 ML INJ SUB-Q SCH (09:38)
--- NOTE | 2021-09-01 12:13 | Progress Note ---
Assessment and Plan Assessment and plan: #Cellulitis -Continue clindamycin -Likely secondary to untreated chronic venous stasis - #Chronic venous stasis with ulceration -General surgery consulted per wound care recs -We will need outpatient wound care follow-up #Hypertension -Patient history of hypertension blood pressure controlled without meds -We will continue to monitor #Uterine prolapse -will consider Lead Mobile Developer consult prior to discharge #Vulvovaginal candidiasis -s/p Diflucan #Debility -PT/OT consulted -Recommended for SNF, patient has changed her mind -New case management consult for SNF placement Disposition Plan: Home with home health versus SNF Total Time Spent with Patient (Minutes): 30 minutes History Interval history: No acute events overnight. Patient denies pain and discomfort. Patient worried about inability to walk, would like to pursue SNF placement. Hospitalist Physical - Physical exam Narrative exam: GENERAL: Well-developed well-nourished. Lying in the bed in no acute distress. CHEST/LUNGS: CTAB on 2 L nasal cannula HEART/CARDIOVASCULAR: RRR. No murmur, rubs or gallops appreciated. ABDOMEN: +BS. NT/ND. NEURO: No focal motor deficit. Follows all commands. EXTREMITIES: BLE chronic venous ulcers covered with dressings C/D/I PSYCH: Cooperative. - Constitutional Vitals: Temp Pulse Resp BP Pulse Ox 98.0 F 67 18 109/53 94 09/01/21 04:28 09/01/21 04:28 09/01/21 04:28 09/01/21 04:28 09/01/21 04:28 General appearance: Present: disheveled, malodorous Results - Labs CBC & Chem 7: 09/01/21 07:29 09/01/21 07:29 Labs: Laboratory Last Values WBC 5.4 K/mm3 (4.5-11.0) 09/01/21 07:29 RBC 4.50 M/mm3 (3.65-5.03) 09/01/21 07:29 Hgb 12.6 gm/dl (10.1-14.3) 09/01/21 07:29 Hct 38.5 % (30.3-42.9) 09/01/21 07:29 MCV 86 fl (79-97) 09/01/21 07:29 MCH 28 pg (28-32) 09/01/21 07:29 MCHC 33 % (30-34) 09/01/21 07:29 RDW 15.0 % (13.2-15.2) 09/01/21 07:29 Plt Count 292 K/mm3 (140-440) 09/01/21 07:29 Lymph % (Auto) 24.8 % (13.4-35.0) 08/30/21 05:56 [place] % (Auto) 11.3 % (0.0-7.3) H 08/30/21 05:56 Eos % (Auto) 2.3 % (0.0-4.3) 08/30/21 05:56 Baso % (Auto) 1.1 % (0.0-1.8) 08/30/21 05:56 Lymph # (Auto) 1.1 K/mm3 (1.2-5.4) L 08/30/21 05:56 [place] # (Auto) 0.5 K/mm3 (0.0-0.8) 08/30/21 05:56 Eos # (Auto) 0.1 K/mm3 (0.0-0.4) 08/30/21 05:56 Baso # (Auto) 0.0 K/mm3 (0.0-0.1) 08/30/21 05:56 Add Manual Diff Complete 08/29/21 13:25 Total Counted 100 08/29/21 13:25 Seg Neutrophils % 60.5 % (40.0-70.0) 08/30/21 05:56 Seg Neuts % (Manual) 82.0 % (40.0-70.0) H 08/29/21 13:25 Lymphocytes % (Manual) 9.0 % (13.4-35.0) L 08/29/21 13:25 Monocytes % (Manual) 7.0 % (0.0-7.3) 08/29/21 13:25 Eosinophils % (Manual) 1.0 % (0.0-4.3) 08/29/21 13:25 Basophils % (Manual) 1.0 % (0.0-1.8) 08/29/21 13:25 Nucleated RBC % Not Reportable 08/29/21 13:25 Seg Neutrophils # 2.7 K/mm3 (1.8-7.7) 08/30/21 05:56 Seg Neutrophils # Man 6.6 K/mm3 (1.8-7.7) 08/29/21 13:25 Band Neutrophils # 0.0 K/mm3 08/29/21 13:25 Lymphocytes # (Manual) 0.7 K/mm3 (1.2-5.4) L 08/29/21 13:25 Abs React Lymphs (Man) 0.0 K/mm3 08/29/21 13:25 Monocytes # (Manual) 0.6 K/mm3 (0.0-0.8) 08/29/21 13:25 Eosinophils # (Manual) 0.1 K/mm3 (0.0-0.4) 08/29/21 13:25 Basophils # (Manual) 0.1 K/mm3 (0.0-0.1) 08/29/21 13:25 Metamyelocytes # 0.0 K/mm3 08/29/21 13:25 Myelocytes # 0.0 K/mm3 08/29/21 13:25 Promyelocytes # 0.0 K/mm3 08/29/21 13:25 Blast Cells # 0.0 K/mm3 08/29/21 13:25 WBC Morphology Not Reportable 08/29/21 13:25 Hypersegmented Neuts Not Reportable 08/29/21 13:25 Hyposegmented Neuts Not Reportable 08/29/21 13:25 Hypogranular Neuts Not Reportable 08/29/21 13:25 Smudge Cells Not Reportable 08/29/21 13:25 Toxic Granulation Not Reportable 08/29/21 13:25 Toxic Vacuolation Not Reportable 08/29/21 13:25 Dohle Bodies Not Reportable 08/29/21 13:25 Pelger-Huet Anomaly Not Reportable 08/29/21 13:25 Liliya Rods Not Reportable 08/29/21 13:25 Platelet Estimate Consistent w auto 08/29/21 13:25 Clumped Platelets Not Reportable 08/29/21 13:25 Plt Clumps, EDTA Not Reportable 08/29/21 13:25 Large Platelets Not Reportable 08/29/21 13:25 Giant Platelets Not Reportable 08/29/21 13:25 Platelet Satelliting Not Reportable 08/29/21 13:25 Plt Morphology Comment Not Reportable 08/29/21 13:25 RBC Morphology Normal 08/29/21 13:25 Dimorphic RBCs Not Reportable 08/29/21 13:25 Polychromasia Not Reportable 08/29/21 13:25 Hypochromasia Not Reportable 08/29/21 13:25 Poikilocytosis Not Reportable 08/29/21 13:25 Anisocytosis Not Reportable 08/29/21 13:25 Microcytosis Not Reportable 08/29/21 13:25 Macrocytosis Not Reportable 08/29/21 13:25 Spherocytes Not Reportable 08/29/21 13:25 Pappenheimer Bodies Not Reportable 08/29/21 13:25 Sickle Cells Not Reportable 08/29/21 13:25 Target Cells Not Reportable 08/29/21 13:25 Tear Drop Cells Not Reportable 08/29/21 13:25 Ovalocytes Not Reportable 08/29/21 13:25 Helmet Cells Not Reportable 08/29/21 13:25 [place] Bodies Not Reportable 08/29/21 13:25 [place] Rings Not Reportable 08/29/21 13:25 [place] Cells Not Reportable 08/29/21 13:25 Bite Cells Not Reportable 08/29/21 13:25 Crenated Cell Not Reportable 08/29/21 13:25 Elliptocytes Not Reportable 08/29/21 13:25 Acanthocytes (Spur) Not Reportable 08/29/21 13:25 Rouleaux Not Reportable 08/29/21 13:25 Hemoglobin C Crystals Not Reportable 08/29/21 13:25 Schistocytes Not Reportable 08/29/21 13:25 Malaria parasites Not Reportable 08/29/21 13:25 Lizandro Bodies Not Reportable 08/29/21 13:25 Hem Pathologist Commnt No 08/29/21 13:25 Sodium 142 mmol/L (137-145) 09/01/21 07:29 Potassium 4.5 mmol/L (3.6-5.0) D 09/01/21 07:29 Chloride 107.8 mmol/L (98-107) H 09/01/21 07:29 Carbon Dioxide 26 mmol/L (22-30) 09/01/21 07:29 Anion Gap 13 mmol/L 09/01/21 07:29 BUN 6 mg/dL (7-17) L 09/01/21 07:29 Creatinine 0.7 mg/dL (0.6-1.2) 09/01/21 07:29 Estimated GFR > 60 ml/min 09/01/21 07:29 BUN/Creatinine Ratio 9 % 09/01/21 07:29 Glucose 91 mg/dL (65-100) 09/01/21 07:29 Calcium 8.4 mg/dL (8.4-10.2) 09/01/21 07:29 Long/IV: Voiding Method Bedpan Active Medications - Current Medications Current Medications: Generic Name Dose Route Start Last Admin Trade Name Freq PRN Reason Stop Dose Admin Acetaminophen 650 mg 08/29/21 14:56 Acetaminophen 325 Mg Tab PO Q4H PRN Pain MILD(1-3)/Fever >100.5/CHAPMAN Albuterol 2.5 mg 08/29/21 14:56 Albuterol 2.5 Mg/3 Ml Nebu IH Q4HRT PRN Shortness Of Breath Enoxaparin Sodium 40 mg 08/31/21 10:00 09/01/21 09:38 Enoxaparin 40 Mg/0.4 Ml Inj SUB-Q 40 mg QDAY@1000 SHON Administration Protocol Hydromorphone HCl 0.5 mg 08/29/21 14:56 Hydromorphone 1 Mg/1 Ml Inj IV Q23H PRN Pain , Severe (7-10) Sodium Chloride 1,000 mls @ 42 mls/hr 08/29/21 15:00 Nacl 0.9% 1000 Ml IV DIRECT SHON Clindamycin HCl 600 mg in 50 mls @ 100 mls/hr 08/31/21 09:00 09/01/21 05:24 Cleocin 600 Mg/50 Ml IV 100 mls/hr Q8HR SHON Administration Protocol Ondansetron HCl 4 mg 08/29/21 14:56 Ondansetron 4 Mg/2 Ml Inj IV Q8H PRN Nausea And Vomiting Oxycodone/Acetaminophen 1 tab 08/29/21 14:56 Oxycodone /Acetaminophen 5-325mg Tab PO Q16H PRN Pain, Moderate (4-6) Sodium Chloride 10 ml 08/29/21 22:00 09/01/21 09:39 Sodium Chloride 0.9% 10 Ml Flush Syringe IV 10 ml BID SHON Administration Sodium Chloride 10 ml 08/29/21 14:56 Sodium Chloride 0.9% 10 Ml Flush Syringe IV PRN PRN LINE FLUSH Sodium Hypochlorite 1 applic 08/31/21 12:00 Sodium Hypochlorite, Dakin's Full Strength (0.5%) 473 Ml Topical Soln TP Q12HR PRN Wound Care
[2021-09-02] MEDS: CLINDAMYCIN 600 MG/50 mL 600 MG/50 ML BAG IV SCH ×3 (05:09→22:03)
--- NOTE | 2021-09-02 10:42 | Progress Note ---
Assessment and Plan Assessment and plan: #Cellulitis -Continue clindamycin last day today -Likely secondary to untreated chronic venous stasis - #Chronic venous stasis with ulceration -General surgery consulted per wound care recs -We will need outpatient wound care follow-up #Hypertension -Patient history of hypertension blood pressure controlled without meds -We will continue to monitor #Uterine prolapse -will consider County Auditor consult prior to discharge #Vulvovaginal candidiasis -s/p Diflucan #Debility -PT/OT consulted -Recommended for SNF, patient has changed her mind -case management consulted for SNF placement Disposition Plan: SNF versus home with home health Total Time Spent with Patient (Minutes): 20 minutes History Interval history: No acute events overnight. Patient denies pain and discomfort. Hospitalist Physical - Physical exam Narrative exam: GENERAL: Well-developed well-nourished. Lying in the bed in no acute distress. CHEST/LUNGS: CTAB on 2 L nasal cannula HEART/CARDIOVASCULAR: RRR. No murmur, rubs or gallops appreciated. ABDOMEN: +BS. NT/ND. NEURO: No focal motor deficit. Follows all commands. EXTREMITIES: BLE chronic venous ulcers covered with dressings C/D/I PSYCH: Cooperative. - Constitutional Vitals: Temp Pulse Resp BP Pulse Ox 97.7 F 63 18 124/54 94 09/02/21 05:07 09/02/21 05:07 09/02/21 05:07 09/02/21 05:07 09/02/21 09:02 General appearance: Present: disheveled, malodorous Results - Labs CBC & Chem 7: 09/01/21 07:29 09/01/21 07:29 Labs: Laboratory Last Values WBC 5.4 K/mm3 (4.5-11.0) 09/01/21 07:29 RBC 4.50 M/mm3 (3.65-5.03) 09/01/21 07:29 Hgb 12.6 gm/dl (10.1-14.3) 09/01/21 07:29 Hct 38.5 % (30.3-42.9) 09/01/21 07:29 MCV 86 fl (79-97) 09/01/21 07:29 MCH 28 pg (28-32) 09/01/21 07:29 MCHC 33 % (30-34) 09/01/21 07:29 RDW 15.0 % (13.2-15.2) 09/01/21 07:29 Plt Count 292 K/mm3 (140-440) 09/01/21 07:29 Lymph % (Auto) 24.8 % (13.4-35.0) 08/30/21 05:56 [place] % (Auto) 11.3 % (0.0-7.3) H 08/30/21 05:56 Eos % (Auto) 2.3 % (0.0-4.3) 08/30/21 05:56 Baso % (Auto) 1.1 % (0.0-1.8) 08/30/21 05:56 Lymph # (Auto) 1.1 K/mm3 (1.2-5.4) L 08/30/21 05:56 [place] # (Auto) 0.5 K/mm3 (0.0-0.8) 08/30/21 05:56 Eos # (Auto) 0.1 K/mm3 (0.0-0.4) 08/30/21 05:56 Baso # (Auto) 0.0 K/mm3 (0.0-0.1) 08/30/21 05:56 Add Manual Diff Complete 08/29/21 13:25 Total Counted 100 08/29/21 13:25 Seg Neutrophils % 60.5 % (40.0-70.0) 08/30/21 05:56 Seg Neuts % (Manual) 82.0 % (40.0-70.0) H 08/29/21 13:25 Lymphocytes % (Manual) 9.0 % (13.4-35.0) L 08/29/21 13:25 Monocytes % (Manual) 7.0 % (0.0-7.3) 08/29/21 13:25 Eosinophils % (Manual) 1.0 % (0.0-4.3) 08/29/21 13:25 Basophils % (Manual) 1.0 % (0.0-1.8) 08/29/21 13:25 Nucleated RBC % Not Reportable 08/29/21 13:25 Seg Neutrophils # 2.7 K/mm3 (1.8-7.7) 08/30/21 05:56 Seg Neutrophils # Man 6.6 K/mm3 (1.8-7.7) 08/29/21 13:25 Band Neutrophils # 0.0 K/mm3 08/29/21 13:25 Lymphocytes # (Manual) 0.7 K/mm3 (1.2-5.4) L 08/29/21 13:25 Abs React Lymphs (Man) 0.0 K/mm3 08/29/21 13:25 Monocytes # (Manual) 0.6 K/mm3 (0.0-0.8) 08/29/21 13:25 Eosinophils # (Manual) 0.1 K/mm3 (0.0-0.4) 08/29/21 13:25 Basophils # (Manual) 0.1 K/mm3 (0.0-0.1) 08/29/21 13:25 Metamyelocytes # 0.0 K/mm3 08/29/21 13:25 Myelocytes # 0.0 K/mm3 08/29/21 13:25 Promyelocytes # 0.0 K/mm3 08/29/21 13:25 Blast Cells # 0.0 K/mm3 08/29/21 13:25 WBC Morphology Not Reportable 08/29/21 13:25 Hypersegmented Neuts Not Reportable 08/29/21 13:25 Hyposegmented Neuts Not Reportable 08/29/21 13:25 Hypogranular Neuts Not Reportable 08/29/21 13:25 Smudge Cells Not Reportable 08/29/21 13:25 Toxic Granulation Not Reportable 08/29/21 13:25 Toxic Vacuolation Not Reportable 08/29/21 13:25 Dohle Bodies Not Reportable 08/29/21 13:25 Pelger-Huet Anomaly Not Reportable 08/29/21 13:25 Liliya Rods Not Reportable 08/29/21 13:25 Platelet Estimate Consistent w auto 08/29/21 13:25 Clumped Platelets Not Reportable 08/29/21 13:25 Plt Clumps, EDTA Not Reportable 08/29/21 13:25 Large Platelets Not Reportable 08/29/21 13:25 Giant Platelets Not Reportable 08/29/21 13:25 Platelet Satelliting Not Reportable 08/29/21 13:25 Plt Morphology Comment Not Reportable 08/29/21 13:25 RBC Morphology Normal 08/29/21 13:25 Dimorphic RBCs Not Reportable 08/29/21 13:25 Polychromasia Not Reportable 08/29/21 13:25 Hypochromasia Not Reportable 08/29/21 13:25 Poikilocytosis Not Reportable 08/29/21 13:25 Anisocytosis Not Reportable 08/29/21 13:25 Microcytosis Not Reportable 08/29/21 13:25 Macrocytosis Not Reportable 08/29/21 13:25 Spherocytes Not Reportable 08/29/21 13:25 Pappenheimer Bodies Not Reportable 08/29/21 13:25 Sickle Cells Not Reportable 08/29/21 13:25 Target Cells Not Reportable 08/29/21 13:25 Tear Drop Cells Not Reportable 08/29/21 13:25 Ovalocytes Not Reportable 08/29/21 13:25 Helmet Cells Not Reportable 08/29/21 13:25 [place] Bodies Not Reportable 08/29/21 13:25 [place] Rings Not Reportable 08/29/21 13:25 [place] Cells Not Reportable 08/29/21 13:25 Bite Cells Not Reportable 08/29/21 13:25 Crenated Cell Not Reportable 08/29/21 13:25 Elliptocytes Not Reportable 08/29/21 13:25 Acanthocytes (Spur) Not Reportable 08/29/21 13:25 Rouleaux Not Reportable 08/29/21 13:25 Hemoglobin C Crystals Not Reportable 08/29/21 13:25 Schistocytes Not Reportable 08/29/21 13:25 Malaria parasites Not Reportable 08/29/21 13:25 Lizandro Bodies Not Reportable 08/29/21 13:25 Hem Pathologist Commnt No 08/29/21 13:25 Sodium 142 mmol/L (137-145) 09/01/21 07:29 Potassium 4.5 mmol/L (3.6-5.0) D 09/01/21 07:29 Chloride 107.8 mmol/L (98-107) H 09/01/21 07:29 Carbon Dioxide 26 mmol/L (22-30) 09/01/21 07:29 Anion Gap 13 mmol/L 09/01/21 07:29 BUN 6 mg/dL (7-17) L 09/01/21 07:29 Creatinine 0.7 mg/dL (0.6-1.2) 09/01/21 07:29 Estimated GFR > 60 ml/min 09/01/21 07:29 BUN/Creatinine Ratio 9 % 09/01/21 07:29 Glucose 91 mg/dL (65-100) 09/01/21 07:29 Calcium 8.4 mg/dL (8.4-10.2) 09/01/21 07:29 Long/IV: Voiding Method Bedpan Active Medications - Current Medications Current Medications: Generic Name Dose Route Start Last Admin Trade Name Freq PRN Reason Stop Dose Admin Acetaminophen 650 mg 08/29/21 14:56 Acetaminophen 325 Mg Tab PO Q4H PRN Pain MILD(1-3)/Fever >100.5/CH[place]MAN Albuterol 2.5 mg 08/29/21 14:56 Albuterol 2.5 Mg/3 Ml Nebu IH Q4HRT PRN Shortness Of Breath Enoxaparin Sodium 40 mg 08/31/21 10:00 09/01/21 09:38 Enoxaparin 40 Mg/0.4 Ml Inj SUB-Q 40 mg QDAY@1000 SHON Administration Protocol Hydromorphone HCl 0.5 mg 08/29/21 14:56 Hydromorphone 1 Mg/1 Ml Inj IV Q23H PRN Pain , Severe (7-10) Sodium Chloride 1,000 mls @ 42 mls/hr 08/29/21 15:00 Nacl 0.9% 1000 Ml IV DIRECT SHON Clindamycin HCl 600 mg in 50 mls @ 100 mls/hr 08/31/21 09:00 09/02/21 05:09 Cleocin 600 Mg/50 Ml IV 09/05/21 08:59 100 mls/hr Q8HR SHON Administration Protocol Ondansetron HCl 4 mg 08/29/21 14:56 Ondansetron 4 Mg/2 Ml Inj IV Q8H PRN Nausea And Vomiting Oxycodone/Acetaminophen 1 tab 08/29/21 14:56 Oxycodone /Acetaminophen 5-325mg Tab PO Q16H PRN Pain, Moderate (4-6) Sodium Chloride 10 ml 08/29/21 22:00 09/01/21 22:50 Sodium Chloride 0.9% 10 Ml Flush Syringe IV 10 ml BID SHON Administration Sodium Chloride 10 ml 08/29/21 14:56 Sodium Chloride 0.9% 10 Ml Flush Syringe IV PRN PRN LINE FLUSH Sodium Hypochlorite 1 applic 08/31/21 12:00 Sodium Hypochlorite, Dakin's Full Strength (0.5%) 473 Ml Topical Soln TP Q12HR PRN Wound Care
[2021-09-02] MEDS: ENOXAPARIN 40 MG/0.4 ML INJ SUB-Q SCH (11:34)
[2021-09-03] MEDS: CLINDAMYCIN 600 MG/50 mL 600 MG/50 ML BAG IV SCH (05:16)
[2021-09-03] MEDS: ENOXAPARIN 40 MG/0.4 ML INJ SUB-Q SCH (10:11)
--- NOTE | 2021-09-03 12:30 | Progress Note ---
Assessment and Plan Assessment and plan: #Cellulitis -S/p clindamycin (completed 09/02/2021) -Likely secondary to untreated chronic venous stasis #Chronic venous stasis with ulceration -General surgery consulted per wound care recs; pending recommendation -We will need outpatient wound care follow-up #Hypertension -Patient history of hypertension blood pressure controlled without meds -We will continue to monitor #Uterine prolapse -will consider Golf Player Assistant consult prior to discharge #Vulvovaginal candidiasis-resolved -s/p Diflucan #Debility -PT/OT consulted and recommending SNF placement. Patient initially disagreed, but she has since changed her mind. -Case management is looking for SNF placement. Disposition Plan: Pending SNF placement Total Time Spent with Patient (Minutes): 40 History Interval history: No acute events over night. The patient denies fevers, chills, nausea, vomiting, abdominal pain, chest pain/pressure, shortness of breath, urinary symptoms, weakness, or confusion. Hospitalist Physical - Constitutional Vitals: Temp Pulse Resp BP Pulse Ox 98.1 F 74 18 126/60 96 09/03/21 04:16 09/03/21 04:16 09/03/21 04:16 09/03/21 04:16 09/03/21 09:30 General appearance: Present: no acute distress, disheveled, malodorous - EENT Eyes: Present: PERRL, EOM intact ENT: hearing intact, clear oral mucosa, dentition normal - Neck Neck: Present: supple, normal ROM - Respiratory Respiratory effort: normal - Cardiovascular Rhythm: regular Heart Sounds: Present: S1 & S2 - Extremities Extremities: no ischemia, pulses intact, pulses symmetrical Extremity abnormal: edema (Chronic venous stasis of bilateral lower legs complicated by cellulitis. Wrapped in Kerlix bandages), ulceration, erythema - Abdominal General gastrointestinal: soft, non-tender, non-distended, normal bowel sounds - Integumentary Integumentary: Present: warm (Significant chronic venous stasis of bilateral lower legs with skin breakdown, ulceration, and erythema) - Psychiatric Psychiatric: appropriate mood/affect, intact judgment & insight, memory intact, cooperative - Neurologic Neurologic: CNII-XII intact, moves all extremities - Allied Health Allied health notes reviewed: nursing Results - Labs CBC & Chem 7: 09/01/21 07:29 09/01/21 07:29 Labs: Laboratory Last Values WBC 5.4 K/mm3 (4.5-11.0) 09/01/21 07:29 RBC 4.50 M/mm3 (3.65-5.03) 09/01/21 07:29 Hgb 12.6 gm/dl (10.1-14.3) 09/01/21 07:29 Hct 38.5 % (30.3-42.9) 09/01/21 07:29 MCV 86 fl (79-97) 09/01/21 07:29 MCH 28 pg (28-32) 09/01/21 07:29 MCHC 33 % (30-34) 09/01/21 07:29 RDW 15.0 % (13.2-15.2) 09/01/21 07:29 Plt Count 292 K/mm3 (140-440) 09/01/21 07:29 Lymph % (Auto) 24.8 % (13.4-35.0) 08/30/21 05:56 [place] % (Auto) 11.3 % (0.0-7.3) H 08/30/21 05:56 Eos % (Auto) 2.3 % (0.0-4.3) 08/30/21 05:56 Baso % (Auto) 1.1 % (0.0-1.8) 08/30/21 05:56 Lymph # (Auto) 1.1 K/mm3 (1.2-5.4) L 08/30/21 05:56 [place] # (Auto) 0.5 K/mm3 (0.0-0.8) 08/30/21 05:56 Eos # (Auto) 0.1 K/mm3 (0.0-0.4) 08/30/21 05:56 Baso # (Auto) 0.0 K/mm3 (0.0-0.1) 08/30/21 05:56 Add Manual Diff Complete 08/29/21 13:25 Total Counted 100 08/29/21 13:25 Seg Neutrophils % 60.5 % (40.0-70.0) 08/30/21 05:56 Seg Neuts % (Manual) 82.0 % (40.0-70.0) H 08/29/21 13:25 Lymphocytes % (Manual) 9.0 % (13.4-35.0) L 08/29/21 13:25 Monocytes % (Manual) 7.0 % (0.0-7.3) 08/29/21 13:25 Eosinophils % (Manual) 1.0 % (0.0-4.3) 08/29/21 13:25 Basophils % (Manual) 1.0 % (0.0-1.8) 08/29/21 13:25 Nucleated RBC % Not Reportable 08/29/21 13:25 Seg Neutrophils # 2.7 K/mm3 (1.8-7.7) 08/30/21 05:56 Seg Neutrophils # Man 6.6 K/mm3 (1.8-7.7) 08/29/21 13:25 Band Neutrophils # 0.0 K/mm3 08/29/21 13:25 Lymphocytes # (Manual) 0.7 K/mm3 (1.2-5.4) L 08/29/21 13:25 Abs React Lymphs (Man) 0.0 K/mm3 08/29/21 13:25 Monocytes # (Manual) 0.6 K/mm3 (0.0-0.8) 08/29/21 13:25 Eosinophils # (Manual) 0.1 K/mm3 (0.0-0.4) 08/29/21 13:25 Basophils # (Manual) 0.1 K/mm3 (0.0-0.1) 08/29/21 13:25 Metamyelocytes # 0.0 K/mm3 08/29/21 13:25 Myelocytes # 0.0 K/mm3 08/29/21 13:25 Promyelocytes # 0.0 K/mm3 08/29/21 13:25 Blast Cells # 0.0 K/mm3 08/29/21 13:25 WBC Morphology Not Reportable 08/29/21 13:25 Hypersegmented Neuts Not Reportable 08/29/21 13:25 Hyposegmented Neuts Not Reportable 08/29/21 13:25 Hypogranular Neuts Not Reportable 08/29/21 13:25 Smudge Cells Not Reportable 08/29/21 13:25 Toxic Granulation Not Reportable 08/29/21 13:25 Toxic Vacuolation Not Reportable 08/29/21 13:25 Dohle Bodies Not Reportable 08/29/21 13:25 Pelger-Huet Anomaly Not Reportable 08/29/21 13:25 Liliya Rods Not Reportable 08/29/21 13:25 Platelet Estimate Consistent w auto 08/29/21 13:25 Clumped Platelets Not Reportable 08/29/21 13:25 Plt Clumps, EDTA Not Reportable 08/29/21 13:25 Large Platelets Not Reportable 08/29/21 13:25 Giant Platelets Not Reportable 08/29/21 13:25 Platelet Satelliting Not Reportable 08/29/21 13:25 Plt Morphology Comment Not Reportable 08/29/21 13:25 RBC Morphology Normal 08/29/21 13:25 Dimorphic RBCs Not Reportable 08/29/21 13:25 Polychromasia Not Reportable 08/29/21 13:25 Hypochromasia Not Reportable 08/29/21 13:25 Poikilocytosis Not Reportable 08/29/21 13:25 Anisocytosis Not Reportable 08/29/21 13:25 Microcytosis Not Reportable 08/29/21 13:25 Macrocytosis Not Reportable 08/29/21 13:25 Spherocytes Not Reportable 08/29/21 13:25 Pappenheimer Bodies Not Reportable 08/29/21 13:25 Sickle Cells Not Reportable 08/29/21 13:25 Target Cells Not Reportable 08/29/21 13:25 Tear Drop Cells Not Reportable 08/29/21 13:25 Ovalocytes Not Reportable 08/29/21 13:25 Helmet Cells Not Reportable 08/29/21 13:25 [place] Bodies Not Reportable 08/29/21 13:25 [place] Rings Not Reportable 08/29/21 13:25 Saurabh Cells Not Reportable 08/29/21 13:25 Bite Cells Not Reportable 08/29/21 13:25 Crenated Cell Not Reportable 08/29/21 13:25 Elliptocytes Not Reportable 08/29/21 13:25 Acanthocytes (Spur) Not Reportable 08/29/21 13:25 Rouleaux Not Reportable 08/29/21 13:25 Hemoglobin C Crystals Not Reportable 08/29/21 13:25 Schistocytes Not Reportable 08/29/21 13:25 Malaria parasites Not Reportable 08/29/21 13:25 Lizandro Bodies Not Reportable 08/29/21 13:25 Hem Pathologist Commnt No 08/29/21 13:25 Sodium 142 mmol/L (137-145) 09/01/21 07:29 Potassium 4.5 mmol/L (3.6-5.0) D 09/01/21 07:29 Chloride 107.8 mmol/L (98-107) H 09/01/21 07:29 Carbon Dioxide 26 mmol/L (22-30) 09/01/21 07:29 Anion Gap 13 mmol/L 09/01/21 07:29 BUN 6 mg/dL (7-17) L 09/01/21 07:29 Creatinine 0.7 mg/dL (0.6-1.2) 09/01/21 07:29 Estimated GFR > 60 ml/min 09/01/21 07:29 BUN/Creatinine Ratio 9 % 09/01/21 07:29 Glucose 91 mg/dL (65-100) 09/01/21 07:29 Calcium 8.4 mg/dL (8.4-10.2) 09/01/21 07:29 Long/IV: Voiding Method Bedpan Active Medications - Current Medications Current Medications: Generic Name Dose Route Start Last Admin Trade Name Freq PRN Reason Stop Dose Admin Acetaminophen 650 mg 08/29/21 14:56 Acetaminophen 325 Mg Tab PO Q4H PRN Pain MILD(1-3)/Fever >100.5/CHAPMAN Albuterol 2.5 mg 08/29/21 14:56 Albuterol 2.5 Mg/3 Ml Nebu IH Q4HRT PRN Shortness Of Breath Enoxaparin Sodium 40 mg 08/31/21 10:00 09/03/21 10:11 Enoxaparin 40 Mg/0.4 Ml Inj SUB-Q 40 mg QDAY@1000 SHON Administration Protocol Hydromorphone HCl 0.5 mg 08/29/21 14:56 Hydromorphone 1 Mg/1 Ml Inj IV Q23H PRN Pain , Severe (7-10) Sodium Chloride 1,000 mls @ 42 mls/hr 08/29/21 15:00 09/02/21 22:00 Nacl 0.9% 1000 Ml IV 42 mls/hr DIRECT SHON Administration Ondansetron HCl 4 mg 08/29/21 14:56 Ondansetron 4 Mg/2 Ml Inj IV Q8H PRN Nausea And Vomiting Oxycodone/Acetaminophen 1 tab 08/29/21 14:56 Oxycodone /Acetaminophen 5-325mg Tab PO Q16H PRN Pain, Moderate (4-6) Sodium Chloride 10 ml 08/29/21 22:00 09/02/21 22:06 Sodium Chloride 0.9% 10 Ml Flush Syringe IV 10 ml BID SHON Administration Sodium Chloride 10 ml 08/29/21 14:56 Sodium Chloride 0.9% 10 Ml Flush Syringe IV PRN PRN LINE FLUSH Sodium Hypochlorite 1 applic 08/31/21 12:00 Sodium Hypochlorite, Dakin's Full Strength (0.5%) 473 Ml Topical Soln TP Q12HR PRN Wound Care
[2021-09-04] MEDS: ENOXAPARIN 40 MG/0.4 ML INJ SUB-Q SCH (12:08)
--- NOTE | 2021-09-04 12:29 | Discharge Summary ---
Providers - Providers Date of Admission: 08/29/21 14:56 Date of discharge: 09/04/21 Attending physician: BERRY FLOWERS MD 08/29/21 13:05 Consult to Case Management [CONS] Stat Services Needed at Discharge: Home Health Services Notified:: none Additional Physician Instructions: SNF Placement 08/29/21 13:22 Consult to Wound/ET Nurse [CONS] Stat Reason For Exam: wound eval 08/29/21 17:32 Occupational Therapy Evaluate and Treat [CONS] Routine Comment: For [facility] placement Reason For Exam: Debility Physical Therapy Evaluation and Treat [CONS] Routine Comment: Needs [facility] Reason For Exam: Debility 08/31/21 08:17 Consult to Physician [CONS] Routine Comment: Consulting Provider: CYN LANDEROS Physician Instructions: Reason For Exam: Evaluation for debridement 09/01/21 12:14 Consult to Case Management [CONS] Routine Services Needed at Discharge: Other Notified:: cm Additional Physician Instructions: SNF placement Primary care physician: CHARM FILTER OPERATOR HELPER Hospitalization Reason for admission: Bilateral lower extremity cellulitis Condition: Stable Pertinent studies: Reviewed. Procedures: None. Hospital course: The patient is a 76-year-old female with past medical history of vascular dementia, cerebral atherosclerosis, chronic debility, hypertension, and bilateral lower extremity DTI who presented via EMS after feeling sick and being unable to take care of herself. In the emergency room the patient was found to have bilateral lower extremity cellulitis with foul-smelling discharge. Due to the patient being bedbound and nonambulatory, the patient was a medicine to the medicine floor for further work-up. The patient was initiated on IV antibiotics, and general surgery was consulted for further evaluation. The patient was found to have maggots in her bilateral lower extremity ulcers/wounds. General surgery declined surgical intervention, but recommended extensive wet to dry dressing changes and follow-up with wound clinic after discharge. During her hospitalization the patient was also treated for vulvovaginal candidiasis with Diflucan. Due to chronic debility, the patient requires SNF placement. The patient and the family expressed understanding. Disposition: 03 [facility] Final Discharge Diagnosis (Prints w/discharge instructions): Bilateral lower extremity cellulitis; vulvovaginal candidiasis; debility Time spent for discharge: 45 min Core Measure Documentation - Palliative Care Palliative Care/ Comfort Measures: Not Applicable - Core Measures Any of the following diagnoses?: none - VTE Discharge Requirements Deep Vein Thrombosis/Pulmonary Embolism Present on Admission: No Has pt received <5 days of overlap therapy or INR<2.0: No (Not indicated) Anticoagulant overlap therapy prescribed at discharge: No Contraindication No Overlap Therapy order at DC: Not Indicated - Acute DE Discharge Requirements Aspirin at discharge: No Reason for no aspirin on DC: Medical contraindication ZENOBIA/ARB for LVSD if EF <40%: Not Applicable Reason for no ZENOBIA/ARB: Medical contraindication (Not indicated not indicated) Beta kimberly at discharge: No Reason for no beta kimberly on DC: Medical contraindication Statin for LDL = or >100 mg/dl on DC: Not Applicable (Not indicated) Reason for no statin on DC: Medical contraindication (Not indicated) - Heart Failure Discharge Requirements ZENOBIA/ARB for LVSD if EF <40%: Not Applicable Reason for no ZENOBIA/ARB: Medical contraindication Beta kimberly at discharge: No (Not indicated) Reason for no beta kimberly on DC: Medical contraindication - Stroke Discharge Requirements Statin for LDL = or >70 mg/dl on DC: Not Applicable (Not indicated) Reason for no statin on DC: Not Indicated Anticoag for atrial fib/atrial flutter: Not Applicable Reason for no anticoag for AF/F on DC: Not Indicated Antithrombotic for ischemic stroke: No Reason for no antithrombotic on DC: Not Indicated Exam - Constitutional Vitals: Temp Pulse Resp BP Pulse Ox 97.3 F L 59 L 18 102/55 100 09/04/21 05:26 09/04/21 05:26 09/04/21 05:26 09/04/21 05:26 09/04/21 08:33 General appearance: Present: no acute distress, disheveled, malodorous - EENT Eyes: Present: PERRL, EOM intact ENT: hearing intact, clear oral mucosa, dentition normal - Neck Neck: Present: supple, normal ROM - Respiratory Respiratory effort: normal - Cardiovascular Rhythm: regular Heart Sounds: Present: S1 & S2 - Extremities Extremities: pulses intact, pulses symmetrical, No edema, normal temperature Extremity abnormal: edema, ulceration (Ulcerations of bilateral lower extremities with skin breakdown; wrapped in Kerlix bandages; diffuse erythema) Peripheral Pulses: within normal limits - Abdominal General gastrointestinal: Present: soft, non-tender, non-distended, normal bowel sounds Female genitourinary: Present: deferred - Rectal Rectal Exam: deferred - Integumentary Integumentary: Present: clear, warm, dry - Musculoskeletal Musculoskeletal: generalized weakness - Psychiatric Psychiatric: appropriate mood/affect, intact judgment & insight, memory intact, cooperative - Neurologic Neurologic: CNII-XII intact, moves all extremities - Allied Health Allied health notes reviewed: nursing Plan Care Plan Goals: Patient being safely discharged to SNF. Assessment: Patient was evaluated for cellulitis of bilateral lower extremities. General surgery declined surgical intervention, but recommended wound clinic follow-up. Patient being discharged to SNF given severe debility. Follow up with: PRIMARY CARE, [Primary Care Provider] - 7 Days Prescriptions: Sodium Hypochlorite [Dakin's Full Strength] 1 applic TP Q12HR PRN #2 bottle PRN Reason: Wound Care
[2021-09-04 17:30] VITALS: BP 113/62
== END 2021-09-04 19:13 | DRG 602 ==
LOC: ED 12:54 → 3A 14:56
PROVIDERS: ADMIT Internal Medicine; ATTEND Student in an Organized Health Care Education/Training Program
DX: L03.116 Cellulitis of left lower limb (principal); G93.41 Metabolic encephalopathy; I87.313 Chronic venous hypertension (idiopathic) with ulcer of bilateral lower extremity; L97.929 Non-pressure chronic ulcer of unspecified part of left lower leg with unspecified severity; L97.919 Non-pressure chronic ulcer of unspecified part of right lower leg with unspecified severity; L03.115 Cellulitis of right lower limb; Z20.822 Contact with and (suspected) exposure to COVID-19; R53.81 Other malaise; I67.2 Cerebral atherosclerosis; F01.50 Vascular dementia, unspecified severity, without behavioral disturbance, psychotic disturbance, mood disturbance, and anxiety; I87.8 Other specified disorders of veins; N81.4 Uterovaginal prolapse, unspecified; B37.3 Candidiasis of vulva and vagina; K21.9 Gastro-esophageal reflux disease without esophagitis; Z87.891 Personal history of nicotine dependence; I10 Essential (primary) hypertension; Z83.3 Family history of diabetes mellitus; Z90.710 Acquired absence of both cervix and uterus; Z82.49 Family history of ischemic heart disease and other diseases of the circulatory system; Z88.6 Allergy status to analgesic agent; Z88.2 Allergy status to sulfonamides; Z88.8 Allergy status to other drugs, medicaments and biological substances
CPT/HCPCS: 36415; 80048; 85007; 85025; 85027; 94640; 94760; G0378; J1170; J1650; J2405; J3010; J3370; J7030; J7040; J7050; U0003